=== PATIENT | male | born 1985 | race Caucasian/White ===

== ENCOUNTER 2016-04-30 08:45 | Emergency (ER) | payer BC ==
[2016-04-30 08:56] VITALS: BP 125/78
[2016-04-30] MEDS ORDERED: Alum Hydrox/Mag Hydrox/Simeth 30 ML, Lidocaine 2% 15 ML PO STA ×2 (09:14)
--- NOTE | 2016-04-30 09:44 | EDM.PDOC ---
ED HPI GI/ABDOMINAL - General Chief Complaint: Chest Pain Stated Complaint: CHEST PAIN Time Seen by Provider: 04/30/16 09:02 Source of Information: Reports: Patient, RN notes reviewed History Limitations: Reports: No limitations - History of Present Illness INITIAL COMMENTS - FREE TEXT/NARRATIVE: The patient states that he developed epigastric abdominal pain this past Thursday night, 04/27/2016. It was initially dull in character, however, has become more burning in character. He states that he did not feel anything during the day, 04/28/2016, however, he did feel worse Thursday night. He states that he felt pain all day yesterday, 04/29/2016. He states that his symptoms are not worse with activity - they can occur even if he is sedentary. He states that he has been taking 2 TUMS, 2 to 3 times a day, which gives him temporary relief. He states that he had some dyspnea and nausea yesterday. No recent emesis, although he did have some diarrhea last night. He denies a recent history of palpitations. No recent constipation or urinary symptoms. The patient reports that he was prescribed prednisone for eczema this past , 04/24/2016 - he believes he is taking 10 mg a day, although states that he did not take it today. He states that he has taken prednisone in the past, without problems. - Related Data Allergies/ADRs: Allergies Allergy/AdvReac Type Severity Reaction Status Date / Time acetaminophen Allergy Hives Verified 04/30/16 08:51 Home Meds: Home Meds Escitalopram [Lexapro] 10 mg PO DAILY 02/21/16 [History] Prednisone. 04/30/16 [History] Past Medical History HEENT History: Reports: Impaired vision Other HEENT History: wears eyeglasses Musculoskeletal History: Reports: Fracture Psychiatric History: Reports: Depression Dermatologic History: Reports: Eczema - Infectious Disease History Infectious Disease History: Reports: Chicken pox - Past Surgical History HEENT Surgical History: Reports: Adenoidectomy, Myringotomy w tube(s) (bilateral ) Social & Family History - Family History Family Medical History: Noncontributory - Tobacco Use Smoking Status *Q: Light Tobacco Smoker Years of Tobacco use: 8 Packs/Tins Daily: 0.1 - Caffeine Use Caffeine Use: Reports: Soda - Alcohol Use Alcohol Use History: Yes Date/Time of Last Drink Comment: January 2016 Alcohol Use in Last Twelve Months: Yes - Recreational Drug Use Recreational Drug Use: No - Living Situation & Occupation Living situation: Reports: single, with significant other (Girlfriend) 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) ED ROS GENERAL - Review of Systems Review Of Systems: See Below Constitutional: Reports: no symptoms HEENT: Reports: No symptoms Respiratory: Reports: No Symptoms Cardiovascular: Reports: No symptoms Endocrine: Reports: no symptoms GI/Abdominal: Reports: No symptoms : Reports: no symptoms Musculoskeletal: Reports: no symptoms Skin: Reports: no symptoms Neurological: Reports: No Symptoms Psychiatric: Reports: No symptoms Hematologic/Lymphatic: Reports: no symptoms Immunologic: Reports: no symptoms ED EXAM, GI/ABD - Physical Exam Exam: See Below Exam Limited By: No limitations General Appearance: alert, WD/WN, no apparent distress Eyes: bilateral: normal appearance, EOMI Ears: normal external exam, hearing grossly normal Nose: normal inspection, no blood Throat/Mouth: Normal inspection, Normal lips, Normal voice, No airway compromise Head: atraumatic, normocephalic Neck: normal inspection, full range of motion Respiratory/Chest: no respiratory distress, lungs clear, normal breath sounds, no accessory muscle use, chest non-tender Cardiovascular: normal peripheral pulses, regular rate, rhythm, no edema, no gallop, no JVD, no murmur, no rub GI/Abdominal: normal bowel sounds, soft, non tender, no organomegaly, no distention, no abnormal bruit, no mass, other (Obese) Back Exam: normal inspection, full range of motion. No: CVA tenderness (L), CVA tenderness (R) Extremities: normal inspection, normal range of motion, non-tender, normal capillary refill, no pedal edema Neurological: alert, oriented, normal cognition, no motor/sensory deficits Psychiatric: normal affect Skin Exam: Warm, Dry, Intact, Normal color, No rash Lymphatic: no adenopathy EKG INTERPRETATION EKG Date: 04/30/16 Time: 09:22 Rhythm: other (Sinus bradycardia) Rate (beats/min): 51 [place]: normal P-wave: present QRS: normal ST-T: normal QT: normal Comparison: NA - no prior EKG Course - Vital Signs Last Recorded V/S: Last Vital Signs Temp 35.9 C 04/30/16 08:52 Pulse 57 L 03/15/17 08:52 Resp 12 04/30/16 08:52 BP 125/78 04/30/16 08:52 Pulse Ox 97 04/30/16 08:52 - Orders/Labs/Meds Orders: Active Orders 24 hr Category Date Time Status EKG Documentation Completion [RC] STAT Care 04/30/16 09:13 Active Labs: Laboratory Tests 04/30/16 04/30/16 04/30/16 Range/Units 09:23 09:23 09:23 WBC 9.67 H (4.23-9.07) K/mm3 RBC 4.36 L (4.63-6.08) M/mm3 Hgb 12.5 L (13.7-17.5) gm/L Hct 36.8 L (40.1-51.0) % MCV 84.4 (79.0-92.2) fl MCH 28.7 (25.7-32.2) pg MCHC 34.0 (32.2-35.5) g/dl RDW Std Deviation 38.5 (35.1-43.9) fL Plt Count 244 (163-337) K/mm3 MPV 11.5 (9.4-12.3) fl Neutrophils % (Manual) 54 (40-60) % Band Neutrophils % 0 (0-10) % Lymphocytes % (Manual) 43 H (20-40) % Atypical Lymphs % 0 % Monocytes % (Manual) 1 L (2-10) % Eosinophils % (Manual) 2 (0.8-7.0) % Basophils % (Manual) 0 L (0.2-1.2) Platelet Estimate Adequate RBC Morph Comment Normal PT 10.9 (8.0-13.0) SECONDS INR 1.00 APTT 24 (22-36) SECONDS D-Dimer, Quantitative 0.34 (0.19-0.59) mg/L Sodium 141 (136-145) mEq/L Potassium 3.4 L (3.5-5.1) mEq/L Chloride 104 (98-107) mEq/L Carbon Dioxide 31 (21-32) mEq/L Anion Gap 9.4 (5-15) BUN 18 (7-18) mg/dL Creatinine 0.8 (0.7-1.3) mg/dL Est Cr Clr Drug Dosing 133.00 mL/min Estimated GFR (MDRD) > 60 (>60) mL/min BUN/Creatinine Ratio 22.5 H (14-18) Glucose 97 (74-106) mg/dL Calcium 9.0 (8.5-10.1) mg/dL Total Bilirubin 0.2 (0.2-1.0) mg/dL AST 15 (15-37) U/L ALT 23 (16-63) U/L Alkaline Phosphatase 69 (46-116) U/L Troponin I < 0.017 (0.00-0.056) ng/mL B-Natriuretic Peptide (0-100) pg/mL Total Protein 6.6 (6.4-8.2) g/dl Albumin 3.5 (3.4-5.0) g/dl Globulin 3.1 gm/dL Albumin/Globulin Ratio 1.1 (1-2) 04/30/16 Range/Units 09:23 WBC (4.23-9.07) K/mm3 RBC (4.63-6.08) M/mm3 Hgb (13.7-17.5) gm/L Hct (40.1-51.0) % MCV (79.0-92.2) fl MCH (25.7-32.2) pg MCHC (32.2-35.5) g/dl RDW Std Deviation (35.1-43.9) fL Plt Count (163-337) K/mm3 MPV (9.4-12.3) fl Neutrophils % (Manual) (40-60) % Band Neutrophils % (0-10) % Lymphocytes % (Manual) (20-40) % Atypical Lymphs % % Monocytes % (Manual) (2-10) % Eosinophils % (Manual) (0.8-7.0) % Basophils % (Manual) (0.2-1.2) Platelet Estimate RBC Morph Comment PT (8.0-13.0) SECONDS INR APTT (22-36) SECONDS D-Dimer, Quantitative (0.19-0.59) mg/L Sodium (136-145) mEq/L Potassium (3.5-5.1) mEq/L Chloride (98-107) mEq/L Carbon Dioxide (21-32) mEq/L Anion Gap (5-15) BUN (7-18) mg/dL Creatinine (0.7-1.3) mg/dL Est Cr Clr Drug Dosing mL/min Estimated GFR (MDRD) (>60) mL/min BUN/Creatinine Ratio (14-18) Glucose (74-106) mg/dL Calcium (8.5-10.1) mg/dL Total Bilirubin (0.2-1.0) mg/dL AST (15-37) U/L ALT (16-63) U/L Alkaline Phosphatase (46-116) U/L Troponin I (0.00-0.056) ng/mL B-Natriuretic Peptide 65 (0-100) pg/mL Total Protein (6.4-8.2) g/dl Albumin (3.4-5.0) g/dl Globulin gm/dL Albumin/Globulin Ratio (1-2) Meds: Medications Discontinued Medications Generic Name Dose Route Start Last Admin Trade Name Freq PRN Reason Stop Dose Admin Al Hydroxide/Mg Hydroxide 30 0 ml 04/30/16 09:14 04/30/16 09:21 ml/ Lidocaine HCl 15 ml PO 04/30/16 09:15 45 ml ONETIME STA Administration Famotidine 40 mg 04/30/16 11:18 04/30/16 11:26 Pepcid PO 04/30/16 11:19 40 mg ONETIME ONE Administration - Radiology Interpretation Free Text/Narrative:: Two-view chest radiograph appears to be grossly normal. Cardiac silhouette is within normal limits. No pulmonary vascular congestion. No pleural effusions. No focal infiltrate. No pneumothorax. Formal read per the Radiologist pending. - Re-Assessments/Exams Free Text/Narrative Re-Assessment/Exam: 04/30/16 09:44 The patient reports that the GI cocktail has improved his symptoms. He is currently hungry, requesting a cheeseburger. 04/30/16 11:16 Test results discussed with the patient. Today's workup is unremarkable, and indicates that the patient is suffering from gastritis, most likely as a consequence of the prednisone that he is taking for eczema. While it is up to the patient if he wants to continue taking the prednisone, I am recommending that we start the patient on [id number] famotidine twice a day, for the next few days. The patient is requesting a note for work for today and tomorrow. I find it difficult to justify a note for work for tomorrow, as gastritis should not prevent the patient from working, and if he is still uncomfortable, he will be uncomfortable at work or at home. Departure - Departure Time of Disposition: 11:19 Disposition: Home, Self-Care 01 Condition: good Clinical Impression: Gastritis Instructions: Gastritis, Adult, [id number], Nonspecific Chest Pain, Easy-to- Read Referrals: Megan Remy PA-C [Physician Rn Telephonic] - Forms: ED Department Discharge, Return to Work/School Form Additional Instructions: You were seen in the emergency room today for upper abdominal and lower chest pain. Workup in the ER included a blood work, an ECG, and a chest x-ray. Your workup was unremarkable. Your symptoms improved after drinking a GI cocktail, which indicates that your symptoms are due to either acid reflux or gastritis. Because you are on prednisone, your symptoms are MOST LIKELY due to gastritis. You have been started on the antacid medicine Pepcid. We recommend you take [id number] generic Pepcid (famotidine), one tablet twice a day for the next several days. If your symptoms persist, please followup with Megan Remy in the clinic. If any other problems, please do not hesitate to return to the ER. - My Orders Last 24 Hours: My Active Orders 04/30/16 09:13 EKG Documentation Completion [RC] STAT - Assessment/Plan Last 24 Hours: My Active Orders 04/30/16 09:13 EKG Documentation Completion [RC] STAT
--- NOTE | 2016-04-30 10:16 | CR ---
Chest: Two views of the chest were obtained. Comparison: No previous chest x-ray. Heart size and mediastinum are normal. Lungs are clear. Bony structures show several mild wedge deformities within the mid thoracic spine which are likely old. Impression: 1. Incidental spine findings. Nothing acute seen on two-view chest x-ray. Diagnostic code #2
[2016-04-30] MEDS ORDERED: Famotidine 20 MG Tab PO ONE (11:18)
== END 2016-04-30 11:36 | disposition home or self-care (01) ==
LOC: JD.ED 08:45
DX: K29.70 Gastritis, unspecified, without bleeding (principal); F32.9 Major depressive disorder, single episode, unspecified; F17.200 Nicotine dependence, unspecified, uncomplicated; Z88.8 Allergy status to other drugs, medicaments and biological substances; Z79.899 Other long term (current) drug therapy
CPT/HCPCS: 36415; 71020; 80053; 83880; 84484; 85025; 85379; 85610; 85730; 93005; 99285; A9270; 99283

== ENCOUNTER 2016-10-21 09:52 | Emergency (ER) | payer SELFPAY ==
[2016-10-21 10:05] VITALS: BP 134/85
--- NOTE | 2016-10-21 10:11 | EDM.PDOC ---
ED HPI GENERAL MEDICAL PROBLEM - General Chief Complaint: General Stated Complaint: FEVER, VOMITING AND SWEATING Time Seen by Provider: 10/21/16 10:11 Source of Information: Reports: Patient History Limitations: Reports: No Limitations - History of Present Illness INITIAL COMMENTS - FREE TEXT/NARRATIVE: 31-year-old male presents the ED with a 2-1/2 one half day history of nausea and repetitive vomiting. He reports he vomited about 7-8 times yesterday. [place] a little better this morning and thought he could make it to work but he vomited when he got there more dry heaves. At no time has there been any blood in emesis. Diarrhea. Tenderness epigastrium from so much vomiting. Feeling lightheaded and dizzy this morning. Onset: Sudden Onset Date: 10/19/16 Duration: Day(s): Location: Reports: Abdomen (Repetitive vomiting.) Quality: Reports: Ache, Other (Pressure in the stomach. Burning in his central chest from vomiting.) Severity: Moderate Improves with: Reports: None Worsens with: Reports: Other (Trying to drink) Context: Denies: Activity ( fluids.), Exercise, Lifting, Sick Contact, Trauma, Other Associated Symptoms: Reports: Loss of Appetite, Malaise, Nausea/Vomiting ( Intractable 8 yesterday.), Weakness, Other (Lightheaded and dizzy.) Treatments INSOLE AND HEEL STIFFENER: Reports: Other (see below) Other Treatments INSOLE AND HEEL STIFFENER: naproxen; cold and sinus medicine Generalized Pain Score (Numeric/FACES): 6 - Related Data Allergies Allergy/AdvReac Type Severity Reaction Status Date / Time acetaminophen Allergy Hives Verified 10/21/16 10:06 Home Meds: Home Meds Ciprofloxacin HCl [Cipro] 500 mg PO BID #12 tablet 10/21/16 [Rx] Meloxicam 15 mg PO DAILY #21 tablet 10/21/16 [Rx] Ondansetron [Zofran ODT] 4 mg PO Q6H #6 tab.dis 10/21/16 [Rx] Past Medical History HEENT History: Reports: Impaired Vision Other HEENT History: wears eyeglasses Respiratory History: Reports: Bronchitis, Recurrent Musculoskeletal History: Reports: Fracture Neurological History: Reports: Migraines Psychiatric History: Reports: Depression Dermatologic History: Reports: Eczema Other Dermatologic History: rashes - Infectious Disease History Infectious Disease History: Reports: Chicken Pox - Past Surgical History HEENT Surgical History: Reports: Adenoidectomy, Myringotomy w Tube(s) Social & Family History - Family History Family Medical History: Noncontributory - Tobacco Use Smoking Status *Q: Current Some Day Smoker Years of Tobacco use: 6 Packs/Tins Daily: 0.1 Used Tobacco, but Quit: No Second Hand Smoke Exposure: No - Caffeine Use Caffeine Use: Reports: Energy Drinks, Soda - Recreational Drug Use Recreational Drug Use: No - Living Situation & Occupation Living situation: Reports: Single, with Significant Other Occupation: Employed ED ROS GENERAL - Review of Systems Review Of Systems: See Below Constitutional: Reports: Fever, Chills, Malaise, Weakness, Fatigue, Diaphoresis , Decreased Appetite. Denies: Weight Loss HEENT: Reports: No Symptoms Respiratory: Reports: No Symptoms Cardiovascular: Reports: No Symptoms Endocrine: Reports: Fatigue GI/Abdominal: Reports: Abdominal Pain, Decreased Appetite, Nausea, Vomiting ( All day yesterday and again this morning.) : Reports: No Symptoms Musculoskeletal: Reports: No Symptoms (Urine is dark in color) Skin: Reports: No Symptoms Neurological: Reports: Dizziness Psychiatric: Reports: No Symptoms Hematologic/Lymphatic: Reports: No Symptoms ED EXAM, GENERAL - Physical Exam Exam: See Below Exam Limited By: No Limitations General Appearance: Alert, WD/WN, Mild Distress Eye Exam: Bilateral Eye: Normal Inspection Throat/Mouth: Normal Inspection, Normal Oropharynx, Other Head: Atraumatic, Normocephalic (Tongue is dry and coated) Neck: Normal Inspection, Supple, Non-Tender, Full Range of Motion. No: Lymphadenopathy (L), Lymphadenopathy (R) Respiratory/Chest: No Respiratory Distress, Lungs Clear, Normal Breath Sounds, No Accessory Muscle Use Cardiovascular: Normal Peripheral Pulses, Regular Rate, Rhythm, No Edema, No Gallop, No Murmur Peripheral Pulses: 2+: Posterior Tibial (L), Posterior Tibial (R), Dorsalis Pedis (L), Dorsalis Pedis (R) GI/Abdominal: Normal Bowel Sounds, Soft, No Organomegaly (Mildly tender in the epigastrium), No Distention, Tender Extremities: Normal Inspection, Normal Range of Motion, Non-Tender, No Pedal Edema, Normal Capillary Refill Neurological: Alert, Oriented, CN II-XII Intact, Normal Cognition, Normal Gait Psychiatric: Normal Affect, Normal Mood Skin Exam: Warm, Dry, Intact, Other (Mildly pallid.) Course - Vital Signs Last Recorded V/S: Last Vital Signs Temp 36.3 C 10/21/16 10:01 Pulse 77 10/21/16 10:01 Resp 18 10/21/16 10:01 BP 134/85 10/21/16 10:01 Pulse Ox 98 10/21/16 10:01 Orthostatic Blood Pressure [ 122/84 Standing] Orthostatic Blood Pressure [ 127/87 Sitting] Orthostatic Blood Pressure [ 128/77 Supine] - Orders/Labs/Meds Labs: Laboratory Tests 10/21/16 10/21/16 Range/Units 11:18 11:18 WBC 15.61 H (4.23-9.07) K/mm3 RBC 4.49 L (4.63-6.08) M/mm3 Hgb 12.8 L (13.7-17.5) gm/L Hct 37.0 L (40.1-51.0) % MCV 82.4 (79.0-92.2) fl MCH 28.5 (25.7-32.2) pg MCHC 34.6 (32.2-35.5) g/dl RDW Std Deviation 36.4 (35.1-43.9) fL Plt Count 237 (163-337) K/mm3 MPV 11.1 (9.4-12.3) fl Neutrophils % (Manual) 63 H (40-60) % Band Neutrophils % 17 H (0-10) % Lymphocytes % (Manual) 14 L (20-40) % Atypical Lymphs % 0 % Monocytes % (Manual) 6 (2-10) % Eosinophils % (Manual) 0 L (0.8-7.0) % Basophils % (Manual) 0 L (0.2-1.2) Platelet Estimate Adequate RBC Morph Comment Normal Sodium 136 (136-145) mEq/L Potassium 3.9 (3.5-5.1) mEq/L Chloride 100 (98-107) mEq/L Carbon Dioxide 31 (21-32) mEq/L Anion Gap 8.9 (5-15) BUN 12 (7-18) mg/dL Creatinine 1.0 (0.7-1.3) mg/dL Est Cr Clr Drug Dosing 98.36 mL/min Estimated GFR (MDRD) > 60 (>60) mL/min BUN/Creatinine Ratio 12.0 L (14-18) Glucose 111 H (74-106) mg/dL Calcium 9.8 (8.5-10.1) mg/dL Total Bilirubin 0.7 (0.2-1.0) mg/dL AST 26 (15-37) U/L ALT 24 (16-63) U/L Alkaline Phosphatase 74 (46-116) U/L C-Reactive Protein 20.3 H* (<1.0) mg/dL Total Protein 7.7 (6.4-8.2) g/dl Albumin 3.7 (3.4-5.0) g/dl Globulin 4.0 gm/dL Albumin/Globulin Ratio 0.9 L (1-2) Amylase 30 (25-115) U/L Meds: Medications Discontinued Medications Generic Name Dose Route Start Last Admin Trade Name Freq PRN Reason Stop Dose Admin Al Hydroxide/Mg Hydroxide 30 0 ml 10/21/16 10:23 10/21/16 11:00 ml/ Lidocaine HCl 15 ml PO 10/21/16 10:24 45 ml ONETIME ONE Administration Dextrose/Sodium Chloride 1,000 mls @ 999 mls/hr 10/21/16 10:30 Dextrose 5%-Normal Saline IV ASDIRECTED ROB Metoclopramide HCl 7.5 mg 10/21/16 10:22 10/21/16 11:06 Reglan IVPUSH 10/21/16 10:23 Not Given ONETIME ONE Ondansetron HCl 4 mg 10/21/16 10:55 10/21/16 11:05 Zofran Odt PO 10/21/16 10:56 4 mg ONETIME ONE Administration - Radiology Interpretation Free Text/Narrative:: 31-year-old male presents the ED with sudden onset of nausea vomiting yesterday upon awakening. He vomited about 7 times yesterday. Was unable to eat or drink at all yesterday. No diarrhea. Some burning discomfort in the central chest presumed to be esophagitis from vomiting. He has a history of GERD. He tried to go to work this morning but felt too dizzy lightheaded and weak and was having dry heaving again. He therefore elected to come to the ED. On examination he does appear volume depleted. Plan IV D5 normal saline at open. Reglan 7.5 mg IV. Routine labs including an amylase. GI cocktail 15 minutes after the Reglan is been given. - Re-Assessments/Exams Free Text/Narrative Re-Assessment/Exam: 10/21/16 11:02 apparently nurses were unable to establish an IV and hurt the patient a great deal and he refuses to have be poked again. He did tolerate the GI cocktail however. I will given Zofran sublingually and then let him step on Gatorade Powerade to make sure that he can't tolerate oral fluids to provide rehydration. Nurses feel he may be able to obtain some labs via a butterfly needle. is willing to tolerate this. Departure - Departure Time of Disposition: 12:23 Disposition: Home, Self-Care 01 Condition: Fair Clinical Impression: Acute gastroenteritis, Nausea and vomiting in adult - Discharge Information Prescriptions: Ciprofloxacin HCl [Cipro] 500 mg PO BID #12 tablet Meloxicam 15 mg PO DAILY #21 tablet Ondansetron [Zofran ODT] 4 mg PO Q6H #6 tab.dis Instructions: Nausea, Adult, Nausea and Vomiting, Adult Referrals: Fiorella Gabriel CURB SETTER [Primary Care Provider] - Forms: ED Department Discharge, ED Return to Work/School Form Additional Instructions: Evaluation in the emergency room today in regards to sudden onset of severe nausea and vomiting with associated fever and chills. Continue dry heaving this morning. Nurses were unable to establish an IV and therefore you did not get IV fluids which I think would make you feel better. Lab work reveals an elevated white blood cell count and markers for inflammation suggesting an underlying bacterial infections this suggests that current infection is likely foodborne illness. Likely part of the bacteria in under cooked food such as undercooked chicken etc. Suggest treatment with Zofran 4 mg under the tongue every 4-6 hours needed to reduce nausea or vomiting. Try and drink plenty of fluids such as Gatorade or Powerade such as 5-6 ounces sipped per hour to maintain hydration. Start antibiotic Cipro 500 mg twice daily for the next 6 days to clear up suspect foodborne infection. I did write a prescription for meloxicam 15 mg once daily that she can start taking when she stomach feeling improved it is to relieve inflammation and pain in your lower back. Suggest off work today and tomorrow until you can eat and drink normally again.
[2016-10-21] MEDS ORDERED: Metoclopramide 10 MG/2 ML SDV IVPUSH ONE (10:22)
[2016-10-21] MEDS ORDERED: Alum Hydrox/Mag Hydrox/Simeth 30 ML, Lidocaine 2% 15 ML PO ONE ×2 (10:23)
[2016-10-21] MEDS ORDERED: Dextrose 5%-0.9% NaCl 1,000 ML IV SCH (10:30)
[2016-10-21] MEDS ORDERED: Ondansetron 4 MG Tab.DIS PO ONE (10:55)
== END 2016-10-21 12:45 | disposition home or self-care (01) ==
LOC: JD.ED 09:52
DX: K52.9 Noninfective gastroenteritis and colitis, unspecified (principal); F32.9 Major depressive disorder, single episode, unspecified; F17.210 Nicotine dependence, cigarettes, uncomplicated; Z96.22 Myringotomy tube(s) status; Z98.890 Other specified postprocedural states; Z79.899 Other long term (current) drug therapy; Z88.6 Allergy status to analgesic agent
CPT/HCPCS: 36415; 80053; 82150; 85025; 86140; 99284; A9270; 99283

== ENCOUNTER 2016-11-27 05:23 | Emergency (ER) | payer SELFPAY ==
[2016-11-27 05:30] VITALS: BP 139/86
[2016-11-27] MEDS ORDERED: Doxycycline 100 MG Cap PO ONE ×2 (05:43→05:54)
[2016-11-27] MEDS ORDERED: Sulfamethoxazole/Trimethoprim 800-160 MG Tab PO ONE (05:44)
--- NOTE | 2016-11-27 05:45 | EDM.PDOC ---
ED HPI GENERAL MEDICAL PROBLEM - General Chief Complaint: Bite:Animal, Insect Stated Complaint: 2 SORE SPOTS ON RIGHT SIDE Time Seen by Provider: 11/27/16 05:43 Source of Information: Reports: Patient, RN Notes Reviewed - History of Present Illness INITIAL COMMENTS - FREE TEXT/NARRATIVE: 31-year-old male developed to inflamed areas one of the right lower chest wall and a second of the right lateral flank area that began about 4-5 days ago. Couple of days ago he squeezed some "pus or fluid from each of these. The upper area although still inflamed is improving. The lower area has become worse with increasing area of redness surrounding the initial lesion and increasing localized discomfort. He states he has never had anything of this nature before. He wonders if they might be "spider bites. He never felt or saw anything bite him but states when working on a car shortly before onset of the lesions there were some "small spiders in the area". Right Abdomen Pain Score (Numeric/FACES): 7 - Related Data Allergies Allergy/AdvReac Type Severity Reaction Status Date / Time acetaminophen Allergy Hives Verified 10/21/16 10:06 Home Meds: Home Meds Doxycycline [Vibramycin] 100 mg PO Q12HR #20 cap 11/27/16 [Rx] Past Medical History HEENT History: Reports: Impaired Vision Other HEENT History: wears eyeglasses Respiratory History: Reports: Bronchitis, Recurrent Musculoskeletal History: Reports: Fracture Neurological History: Reports: Migraines Psychiatric History: Reports: Depression Dermatologic History: Reports: Eczema Other Dermatologic History: rashes - Infectious Disease History Infectious Disease History: Reports: Chicken Pox - Past Surgical History HEENT Surgical History: Reports: Adenoidectomy, Myringotomy w Tube(s) Social & Family History - Family History Family Medical History: Noncontributory - Tobacco Use Smoking Status *Q: Never Smoker Years of Tobacco use: 6 Packs/Tins Daily: 0.1 Used Tobacco, but Quit: No Second Hand Smoke Exposure: No - Caffeine Use Caffeine Use: Reports: None - Recreational Drug Use Recreational Drug Use: No - Living Situation & Occupation Living situation: Reports: Single, with Significant Other Occupation: Employed ED ROS GENERAL - Review of Systems Review Of Systems: See Below Constitutional: Denies: Fever, Chills HEENT: Reports: No Symptoms Respiratory: Denies: Shortness of Breath Cardiovascular: Denies: Chest Pain GI/Abdominal: Denies: Abdominal Pain, Nausea, Vomiting Musculoskeletal: Denies: Joint Pain Skin: Reports: Erythema (Lesion right chest wall with localized swelling and erythema, lesion right flank with surrounding area of erythema) ED EXAM, ANIMAL BITE - Physical Exam Exam: See Below General Appearance: Alert, No Apparent Distress Throat/Mouth: Normal Inspection Head: No: Facial Swelling Neck: Supple, Full Range of Motion Respiratory/Chest: No Respiratory Distress Skin Exam: Warm/Dry, Other (There is a fairly small inflamed in right lateral chest wall with mild localized swelling, no fluctuance or drainage at this time , there is an infected area right flank with centrally raised lesion and relatively large area of surrounding erythema compatible with cellulitis, no central fluctuance or evidence of recent drainage, skin otherwise clear) Course - Vital Signs Last Recorded V/S: Last Vital Signs Temp 97.9 F 11/27/16 05:27 Pulse 94 11/27/16 05:27 Resp 16 11/27/16 05:27 BP 139/86 11/27/16 05:27 Pulse Ox 98 11/27/16 05:27 - Orders/Labs/Meds Meds: Medications Discontinued Medications Generic Name Dose Route Start Last Admin Trade Name Freq PRN Reason Stop Dose Admin Doxycycline Hyclate 200 mg 11/27/16 05:43 11/27/16 05:50 Vibramycin PO 11/27/16 05:44 200 mg ONETIME ONE Administration Doxycycline Hyclate 100 mg 11/27/16 05:54 11/27/16 06:03 Vibramycin PO 11/27/16 05:55 100 mg ONETIME ONE Administration Trimethoprim/Sulfamethoxazole 2 tab 11/27/16 05:44 11/27/16 05:50 Septra Ds PO 11/27/16 05:45 2 tab ONETIME ONE Administration Departure - Departure Time of Disposition: 05:50 Disposition: Home, Self-Care 01 Condition: Fair Clinical Impression: Cellulitis Qualifiers: Site of cellulitis: trunk Site of cellulitis of trunk: unspecified site Qualified Code(s): L03.319 - Cellulitis of trunk, unspecified - Discharge Information Prescriptions: Doxycycline [Vibramycin] 100 mg PO Q12HR #20 cap Instructions: Cellulitis, Adult Referrals: Fiorella Gabriel NP [Primary Care Provider] - Forms: ED Department Discharge, ED Return to Work/School Form Additional Instructions: You've been given doxycycline 200 mg orally and Bactrim DS 2 tablets orally while here in the ED to get started fighting this infection, continue doxycycline 100 mg twice daily for the next 10 days. Warm compresses 3-4 times daily as best you can. If a pus pocket does develop again you may open that with a razor blade for drainage, do not squeeze as that does drive the infection further and deeper into the tissue. Follow-up clinic if not much better within 3-4 days as expected, return to ED if symptoms worsening in any way. You may Alternate Tylenol and ibuprofen as needed for discomfort.
== END 2016-11-27 06:00 | disposition home or self-care (01) ==
LOC: JD.ED 05:23
DX: L03.313 Cellulitis of chest wall (principal); Z88.6 Allergy status to analgesic agent
CPT/HCPCS: 99282; A9270

== ENCOUNTER 2017-03-13 13:01 | Emergency (ER) | payer BC ==
[2017-03-13 13:12] VITALS: BP 123/73
--- NOTE | 2017-03-13 13:23 | EDM.PDOC ---
ED HPI GENERAL MEDICAL PROBLEM - General Chief Complaint: Respiratory Problem Stated Complaint: CHEST CONGESTION AND COUGH Time Seen by Provider: 03/13/17 13:21 Source of Information: Reports: Patient History Limitations: Reports: No Limitations - History of Present Illness INITIAL COMMENTS - FREE TEXT/NARRATIVE: 31-year-old male attends the ED with acute onset of upper respiratory tract infection last evening. After work he developed symptoms of generalized myalgia headache paroxysmal minimally productive cough is worse this morning. It's all over with severe headache. He needs to cough throughout the night without any sleep. Has absolutely no appetite today. Patient usually has a pain pill that he takes at bedtime for low back pain which she could not get down last night. Clinically has all the signs and symptoms of influenza. He did not receive a flu shot. Onset: Sudden Onset Date: 03/12/17 Onset Time: 16:00 Duration: Hour(s): Location: Reports: Chest (Paroxysmal minimally productive cough), Generalized ( Generalized myalgia with headache) Quality: Reports: Other Severity: Severe (Generalized myalgia. 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 Denies: Activity, Exercise, Lifting, Trauma, Other Associated Symptoms: Reports: Cough, cough w sputum, Fever/Chills (102.), Headaches, Loss of Appetite, Malaise, Nausea/Vomiting, Weakness (Generalized severe weakness.). Denies: Confusion, Diaphoresis (This can't get much up.), Rash, Seizure, Shortness of Breath, Syncope Treatments SECURITY GUARD: Reports: Other (see below) Other Treatments SECURITY GUARD: aleeve Headache Pain Score (Numeric/FACES): 10 - Related Data Allergies Allergy/AdvReac Type Severity Reaction Status Date / Time acetaminophen Allergy Hives Verified 10/21/16 10:06 Home Meds: Home Meds Ibuprofen [Motrin] 800 mg PO QID PRN #16 tab 03/13/17 [Rx] Oseltamivir [Tamiflu] 75 mg PO BID #10 cap 03/13/17 [Rx] Past Medical History HEENT History: Reports: Impaired Vision Other HEENT History: wears eyeglasses Respiratory History: Reports: Bronchitis, Recurrent Musculoskeletal History: Reports: Fracture Neurological History: Reports: Migraines Psychiatric History: Reports: Depression Dermatologic History: Reports: Eczema Other Dermatologic History: rashes - Infectious Disease History Infectious Disease History: Reports: Chicken Pox - Past Surgical History HEENT Surgical History: Reports: Adenoidectomy, Myringotomy w Tube(s) Social & Family History - Family History Family Medical History: Noncontributory - Tobacco Use Smoking Status *Q: Current Every Day Smoker Years of Tobacco use: 5 Packs/Tins Daily: 0.5 Used Tobacco, but Quit: No Second Hand Smoke Exposure: No - Caffeine Use Caffeine Use: Reports: Energy Drinks, Soda - Recreational Drug Use Recreational Drug Use: No - Living Situation & Occupation Living situation: Reports: Single, with Significant Other 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 Denies: Weight Loss HEENT: Reports: Sinus Problem (Feels a little clogged up in his), Throat Pain ( nose.). Denies: Ear Pain (marked throat pain. ), Glasses, Hearing Loss, Vertigo Respiratory: Reports: Shortness of Breath (Due to coughing.), Cough. Denies: Wheezing, Pleuritic Chest Pain, Sputum, Hemoptysis (Paroxysmal minimally productive cough.), Other Cardiovascular: Reports: Chest Pain. Denies: Blood Pressure Problem (Only from coughing.), Claudication, Dyspnea on Exertion, Edema, Lightheadedness, Orthopnea , Palpitations Endocrine: Reports: Fatigue GI/Abdominal: Reports: Anorexia. Denies: Abdominal Pain : Reports: No Symptoms Musculoskeletal: Reports: Muscle Pain (Generalized myalgia.) Skin: Reports: No Symptoms Neurological: Reports: Headache (Due to weakness.), Difficulty Walking Psychiatric: Reports: No Symptoms ( Constant throbbing headache bilaterally.) Hematologic/Lymphatic: Reports: No Symptoms Immunologic: Reports: No Symptoms ED EXAM, GENERAL - Physical Exam Exam: See Below Exam Limited By: No Limitations General Appearance: Alert, WD/WN, Moderate Distress (Appears ill. He is very warm to palpation. Nurses report To 37.7 but he feels warmer than that.) Eye Exam: Bilateral Eye: Normal Inspection (Has pain on lateral gaze bilaterally.) Ears: Normal TMs Throat/Mouth: Other (There are oropharynx is diffusely erythematous without any exudate.) Head: Atraumatic, Normocephalic Neck: Normal Inspection, Supple, Non-Tender, Full Range of Motion. No: Carotid Bruit, Lymphadenopathy (L), Lymphadenopathy (R) Respiratory/Chest: Lungs Clear (Mild tachypnea at rest secondary to fever), Normal Breath Sounds, No Accessory Muscle Use, Chest Non-Tender, Respiratory Distress Cardiovascular: Normal Peripheral Pulses, Regular Rate, Rhythm, No Edema, No Gallop, No Murmur, No Rub, Tachycardia (Mild tachycardia at rest 108/min.) GI/Abdominal: Normal Bowel Sounds, Soft, Non-Tender, No Organomegaly Back Exam: Normal Inspection. No: CVA Tenderness (L), CVA Tenderness (R) Extremities: Normal Inspection, Normal Range of Motion, Non-Tender, No Pedal Edema Neurological: Alert, Oriented, CN II-XII Intact, Normal Cognition Psychiatric: Normal Affect, Normal Mood Skin Exam: Warm, Dry, Intact, Normal Color, No Rash Course - Vital Signs Last Recorded V/S: Last Vital Signs Temp 37.7 C 03/13/17 14:29 Pulse 106 H 03/13/17 13:10 Resp 20 03/13/17 13:10 BP 123/73 03/13/17 13:10 Pulse Ox 95 03/13/17 13:10 - Orders/Labs/Meds Orders: Active Orders 24 hr Category Date Time Status CULTURE STREP A CONFIRMATION [RM] Stat Lab 03/13/17 13:22 Results STREP SCRN A RAPID W CULT CONF [RM] Stat Lab 03/13/17 13:22 Results Meds: Medications Discontinued Medications Generic Name Dose Route Start Last Admin Trade Name Freq PRN Reason Stop Dose Admin Ibuprofen 800 mg 03/13/17 13:37 03/13/17 14:29 Motrin PO 03/13/17 13:38 800 mg ONETIME ONE Administration - Radiology Interpretation Free Text/Narrative:: 31-year-old male presents the ED with acute onset of upper respiratory tract symptoms. He slightly atypical in terms that he does have nasal congestion and a moderately severe sore throat associated with diffuse myalgia high fever headache and paroxysmal cough all of which came on about same time his symptoms are compatible with influenza virus. His oropharynx however is quite erythematous. No exudate noted. Therefore he will have an influenza screen as well as a throat for rapid strep. We'll give him 800 mg of Motrin by mouth for fever and body ache relief. - Re-Assessments/Exams Free Text/Narrative Re-Assessment/Exam: 03/13/17 14:19 patient's influenza screen is positive for the type a virus. Strep screen was negative. Patient will therefore be started on Tamiflu 75 mg twice a day for the next 5 days. Advised of course to stay home from work for the next 3 days at least. Plenty of fluids such as Gatorade or Powerade. Motrin 600 mg every 6 hours for headache, bodyache, and fever relief. Departure - Departure Time of Disposition: 14:37 Disposition: Home, Self-Care 01 Condition: Fair Clinical Impression: Influenza A - Discharge Information Prescriptions: Ibuprofen [Motrin] 800 mg PO QID PRN #16 tab PRN Reason: fever/headache Oseltamivir [Tamiflu] 75 mg PO BID #10 cap Instructions: Influenza, Adult, [id number] Referrals: Fiorella Gabriel CONVEYOR FEEDER [Primary Care Provider] - Forms: ED Department Discharge Additional Instructions: Evaluation the emergency room today in regards to acute onset of upper respiratory tract infection with associated high fever generalized body aches and marked headache. Associated paroxysmal minimally productive cough and sore throat. Rapid strep screen proved to be negative. However influenza A screen is positive as clinically suspected. Treatment is therefore high-dose ibuprofen or Motrin 800 mg every 6 hours to relieve headache bodyache and fever. He will need this for at least 2 days. Start Tamiflu 75 mg twice daily this afternoon and take the second tablet before bed tonight. After 3 tablets it starts to work fairly well answers to relieve body ache headache and appetite will improve. Try drink plenty of fluids such as Gatorade or Powerade even though he may not have any appetite with this illness. He eats whatever you can. Prescription also given for your girlfriend for Tamiflu 75 mg daily for the next 10 days to try and prevent the flu. If she starts to show symptoms of flow such as fever cough she is to take it twice daily like you. - My Orders Last 24 Hours: My Active Orders 03/13/17 13:22 CULTURE STREP A CONFIRMATION [RM] Stat STREP SCRN A RAPID W CULT CONF [RM] Stat - Assessment/Plan Last 24 Hours: My Active Orders 03/13/17 13:22 CULTURE STREP A CONFIRMATION [RM] Stat STREP SCRN A RAPID W CULT CONF [RM] Stat
[2017-03-13] MEDS ORDERED: Ibuprofen 800 MG Tab PO ONE (13:37)
== END 2017-03-13 14:40 | disposition home or self-care (01) ==
LOC: JD.ED 13:01
DX: J10.1 Influenza due to other identified influenza virus with other respiratory manifestations (principal); Z88.6 Allergy status to analgesic agent; F17.210 Nicotine dependence, cigarettes, uncomplicated
CPT/HCPCS: 87081; 87430; 87804; 99283; A9270

== ENCOUNTER 2017-05-27 04:55 | Emergency (ER) | payer BC ==
[2017-05-27 05:05] VITALS: BP 138/97
[2017-05-27] MEDS ORDERED: Ketorolac 30 MG/ML SDV IVPUSH ONE (05:20)
[2017-05-27] MEDS ORDERED: diphenhydrAMINE 50 MG/ML SDV IVPUSH ONE (05:20)
[2017-05-27] MEDS ORDERED: Prochlorperazine 10 MG/2 ML SDV IVPUSH ONE (05:20)
[2017-05-27] MEDS ORDERED: Sodium Chloride 0.9% 10 ML Syringe FLUSH PRN (05:20)
--- NOTE | 2017-05-27 05:25 | EDM.PDOC ---
ED HPI GENERAL MEDICAL PROBLEM - General Chief Complaint: Headache Stated Complaint: MIGRAINE AND NECK PAIN Time Seen by Provider: 05/27/17 05:16 Source of Information: Reports: Patient History Limitations: Reports: No Limitations - History of Present Illness INITIAL COMMENTS - FREE TEXT/NARRATIVE: The patient presents with a headache. This has been going on for the past 3 days. This morning he woke up with the pain. He has a history of migraines but it has been awhile since he had any. He also has some neck pain. He has no fever but he does have chills. He has nausea and he is diaphoretic. The pain comes and goes. He has no cough, chest pain, abdominal pain or vomiting. He feels weak all over. He has no numbness. Onset: Gradual Duration: Day(s): (3) Location: Reports: Head, Neck Quality: Reports: Sharp Severity: Severe Improves with: Reports: None Worsens with: Reports: None Associated Symptoms: Reports: Fever/Chills, Headaches, Nausea/Vomiting. Denies : Chest Pain, Shortness of Breath Headache Pain Score (Numeric/FACES): 10 - Related Data Allergies Allergy/AdvReac Type Severity Reaction Status Date / Time acetaminophen Allergy Hives Verified 10/21/16 10:06 Home Meds: Home Meds Ibuprofen [Motrin] 800 mg PO QID PRN #16 tab 03/13/17 [Rx] Past Medical History HEENT History: Reports: Impaired Vision Other HEENT History: wears eyeglasses Respiratory History: Reports: Bronchitis, Recurrent Musculoskeletal History: Reports: Fracture Neurological History: Reports: Migraines Psychiatric History: Reports: Depression Dermatologic History: Reports: Eczema Other Dermatologic History: rashes - Infectious Disease History Infectious Disease History: Reports: Chicken Pox - Past Surgical History HEENT Surgical History: Reports: Adenoidectomy, Myringotomy w Tube(s) Social & Family History - Family History Family Medical History: Noncontributory - Tobacco Use Smoking Status *Q: Never Smoker Years of Tobacco use: 5 Packs/Tins Daily: 0.5 Used Tobacco, but Quit: No Second Hand Smoke Exposure: No - Caffeine Use Caffeine Use: Reports: Energy Drinks, Soda, Tea - Recreational Drug Use Recreational Drug Use: No - Living Situation & Occupation Living situation: Reports: Single, with Significant Other 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 Denies: Fever HEENT: Reports: No Symptoms Respiratory: Reports: No Symptoms Cardiovascular: Reports: No Symptoms Endocrine: Reports: No Symptoms GI/Abdominal: Reports: Nausea. Denies: Abdominal Pain, Diarrhea, Vomiting : Reports: No Symptoms Musculoskeletal: Reports: Neck Pain - Physical Exam Exam: See Below Exam Limited By: No Limitations General Appearance: Alert, No Apparent Distress Ears: Normal External Exam Nose: Normal Inspection Head Exam: Atraumatic, Normocephalic Neck: Normal Inspection, Supple, Non-Tender Respiratory/Chest: No Respiratory Distress, Lungs Clear, Normal Breath Sounds Cardiovascular: Regular Rate, Rhythm, No Edema, No Murmur GI/Abdominal: Soft, Non-Tender, No Organomegaly, No Mass Neuro Exam (Abbreviated): Alert, Oriented, No Motor/Sensory Deficits Course - Vital Signs Last Recorded V/S: Last Vital Signs Temp 96.3 F 05/27/17 05:01 Pulse 64 05/27/17 05:01 Resp 18 05/27/17 05:01 BP 138/97 H 05/27/17 05:01 Pulse Ox 94 L 05/27/17 05:01 - Orders/Labs/Meds Orders: Active Orders 24 hr Category Date Time Status Peripheral IV Care [RC] . DIRECTED Care 05/27/17 05:20 Active Sodium Chloride 0.9% [Saline Flush] Med 05/27/17 05:20 Active 10 ml FLUSH ASDIRECTED PRN Peripheral IV Insertion Adult [OM.PC] Routine Oth 05/27/17 05:20 Ordered Medication Orders Sodium Chloride (Saline Flush) 10 ml FLUSH ASDIRECTED PRN PRN Reason: Keep Vein Open Last Admin: 05/27/17 05:26 Dose: 10 ml Meds: Medications Generic Name Dose Route Start Last Admin Trade Name Freq PRN Reason Stop Dose Admin Sodium Chloride 10 ml 05/27/17 05:20 05/27/17 05:26 Saline Flush FLUSH 10 ml ASDIRECTED PRN Administration Keep Vein Open Discontinued Medications Generic Name Dose Route Start Last Admin Trade Name Freq PRN Reason Stop Dose Admin Diphenhydramine HCl 50 mg 05/27/17 05:20 05/27/17 05:25 Benadryl IVPUSH 05/27/17 05:21 50 mg ONETIME ONE Administration Ketorolac Tromethamine 30 mg 05/27/17 05:20 05/27/17 05:26 Toradol IVPUSH 05/27/17 05:21 30 mg ONETIME ONE Administration Prochlorperazine Edisylate 10 mg 05/27/17 05:20 05/27/17 05:26 Compazine IVPUSH 05/27/17 05:21 10 mg ONETIME ONE Administration - Re-Assessments/Exams Free Text/Narrative Re-Assessment/Exam: 05/27/17 05:24 I ordered an IV saline lock, compazine 10mg IV, toradol 30mg IV and benadryl 50mg IV. 05/27/17 06:09 He feels much better and he was able to sleep some. I will discharge him home. Departure - Departure Time of Disposition: 06:10 Disposition: Home, Self-Care 01 Condition: Good Clinical Impression: Migraine - Discharge Information Referrals: Gunner Gabriel MD [Primary Care Provider] - Forms: ED Department Discharge, ED Return to Work/School Form Additional Instructions: Go home and rest in a quit dark place. Drink plenty of fluids. Do not work today. Please return if you are worse. - My Orders Last 24 Hours: My Active Orders 05/27/17 05:20 Peripheral IV Care [RC] . DIRECTED Sodium Chloride 0.9% [Saline Flush] 10 ml FLUSH ASDIRECTED PRN Peripheral IV Insertion Adult [OM.PC] Routine - Assessment/Plan Last 24 Hours: My Active Orders 05/27/17 05:20 Peripheral IV Care [RC] . DIRECTED Sodium Chloride 0.9% [Saline Flush] 10 ml FLUSH ASDIRECTED PRN Peripheral IV Insertion Adult [OM.PC] Routine
== END 2017-05-27 06:23 | disposition home or self-care (01) ==
LOC: JD.ED 04:55
DX: G43.909 Migraine, unspecified, not intractable, without status migrainosus (principal); M54.2 Cervicalgia; Z88.6 Allergy status to analgesic agent
CPT/HCPCS: 96374; 96375; 99284; J0780; J1200; J1885; J7050; 99283

== ENCOUNTER 2017-06-13 17:42 | Emergency (ER) | payer BC ==
[2017-06-13 17:57] VITALS: BP 120/69
[2017-06-13] MEDS ORDERED: Ketorolac 60 MG/2 ML SDV IM ONE (18:35)
[2017-06-13] MEDS ORDERED: methylPREDNISolone Sodium Succinate 125 MG/2 ML SDV IM ONE (18:35)
[2017-06-13] MEDS ORDERED: hydrOXYzine HCl 25 MG/ML SDV IM ONE (18:41)
--- NOTE | 2017-06-13 18:51 | EDM.PDOC ---
ED HPI GENERAL MEDICAL PROBLEM - General Chief Complaint: Lower Extremity Injury/Pain Stated Complaint: FOOT PAIN Time Seen by Provider: 06/13/17 18:20 Source of Information: Reports: Patient History Limitations: Reports: No Limitations - History of Present Illness INITIAL COMMENTS - FREE TEXT/NARRATIVE: 31-year-old male presents for evaluation and treatment of pain to the bilateral feet due to a rash. Patient reports he's had a flareup of his eczema to his feet for the last 8 days. He has been struggling this since he was about 17. Patient reports that the rash did blister and he would pop the blisters. He is here requesting prednisone and oxycodone. He states he has been on oral prednisone for this in the past and has well for him. Is currently using betamethasone with little to no relief. He sees dermatology [place] but is not full to get an and sees solar site assessment specialist for about 3 months. No fevers, chills, nausea or vomiting. Patient reports that he is on oxyco back pain. Currently does not have any oxycodone. No primary care provider. Location: Reports: Lower Extremity, Left, Lower Extremity, Right Bilateral Feet Pain Score (Numeric/FACES): 9 - Related Data Allergies Allergy/AdvReac Type Severity Reaction Status Date / Time acetaminophen Allergy Hives Verified 10/21/16 10:06 Home Meds: Home Meds Ibuprofen [Motrin] 800 mg PO QID PRN #16 tab 03/13/17 [Rx] Betamethasone/Propylene Glyc [Betamethasone DP Aug 0.05%] 1 applic TOP ASDIRECTED 06/13/17 [History] Prednisone [IJD: predniSONE] 40 mg PO WITHBREAKFAST #11 tab 06/13/17 [Rx] hydrOXYzine HCl [Atarax] 25 mg PO Q6H PRN #20 tab 06/13/17 [Rx] Past Medical History HEENT History: Reports: Impaired Vision Other HEENT History: wears eyeglasses Respiratory History: Reports: Bronchitis, Recurrent Musculoskeletal History: Reports: Fracture Neurological History: Reports: Migraines Psychiatric History: Reports: Depression Dermatologic History: Reports: Eczema Other Dermatologic History: rashes - Infectious Disease History Infectious Disease History: Reports: Chicken Pox - Past Surgical History HEENT Surgical History: Reports: Adenoidectomy, Myringotomy w Tube(s) Social & Family History - Family History Family Medical History: Noncontributory - Tobacco Use Smoking Status *Q: Current Every Day Smoker Years of Tobacco use: 6 Packs/Tins Daily: 0.3 Used Tobacco, but Quit: No Second Hand Smoke Exposure: No - Caffeine Use Caffeine Use: Reports: Energy Drinks, Soda - Recreational Drug Use Recreational Drug Use: No - Living Situation & Occupation Living situation: Reports: Single, with Significant Other 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) Review of Systems - Review of Systems Review Of Systems: See Below Constitutional: Denies: Chills, Fever GI/Abdominal: Denies: Nausea, Vomiting Musculoskeletal: Reports: Foot Pain (bilateral) Skin: Reports: Rash (bilateral feet) ED EXAM, GENERAL - Physical Exam Exam: See Below Exam Limited By: No Limitations General Appearance: Alert, WD/WN, No Apparent Distress Respiratory/Chest: No Respiratory Distress Cardiovascular: Normal Peripheral Pulses, Regular Rate, Rhythm Peripheral Pulses: 3+: Posterior Tibial (L), Posterior Tibial (R), Dorsalis Pedis (L), Dorsalis Pedis (R) Neurological: Alert, Oriented, Normal Cognition Psychiatric: Normal Affect, Normal Mood Skin Exam: Warm, Dry, Other (Erythema and minor swelling to the bilateral feet worse on the medial aspects. Several plaques present on the feet. Spares the soles. Blanches under pressure. No blistering present. Negative Nikolsky sign.) Course - Vital Signs Last Recorded V/S: Last Vital Signs Temp 36.4 C 06/13/17 17:53 Pulse Resp 20 06/13/17 17:53 BP 120/69 06/13/17 17:53 Pulse Ox 96 06/13/17 17:53 - Orders/Labs/Meds Orders: Active Orders 24 hr Category Date Time Status Enema [RC] ASDIRECTED Care 06/13/17 18:08 Inactive Meds: Medications Discontinued Medications Generic Name Dose Route Start Last Admin Trade Name Albert PRN Reason Stop Dose Admin Hydroxyzine HCl 25 mg 06/13/17 18:41 06/13/17 18:50 Vistaril IM 06/13/17 18:42 25 mg ONETIME ONE Administration Ketorolac Tromethamine 60 mg 06/13/17 18:35 06/13/17 18:55 Toradol IM 06/13/17 18:36 60 mg ONETIME ONE Administration Methylprednisolone Sodium Succinate 125 mg 06/13/17 18:35 06/13/17 18:54 Solu-Medrol IM 06/13/17 18:36 125 mg ONETIME ONE Administration - Re-Assessments/Exams Free Text/Narrative Re-Assessment/Exam: 06/13/17 18:40 Patient was searched on the [place] prescription drug registry. He has received 16 prescriptions from 1 prescriber for controlled substances within the last year. Most recently he received oxycodone 15 mg #30 on 06-01-17. I will start the patient on some prednisone as I feel this will be most beneficial to him. I'll give him some Toradol and solumedrol here in the ER. Informed him I'm unable to refill oxycodone and he should see Fiorella Gabriel whom he has been seen for this in the past if he needs further pain management. Discharge instructions as documented. Departure - Departure Time of Disposition: 18:41 Disposition: Home, Self-Care 01 Condition: Fair Clinical Impression: Contact dermatitis and eczema - Discharge Information Prescriptions: hydrOXYzine HCl [Atarax] 25 mg PO Q6H PRN #20 tab PRN Reason: Itching Prednisone [IJD: predniSONE] 40 mg PO WITHBREAKFAST #11 tab Instructions: Contact Dermatitis Referrals: PCP,None [Primary Care Provider] - Fiorella Gabriel NP [Ordering Only Provider] - Forms: ED Department Discharge Additional Instructions: Take the prednisone as prescribed. 1 tab twice a day for 3 days then 1 tab once a day for 3 days then one half tab daily for 4 days. Start the prednisone tomorrow since you were given steroid in the ER tonight. Hydroxyzine 1 tab every 6 hours as needed for itchiness. Wkde-[id number] ibuprofen 600-800 mg every 6 hours as needed for pain. follow-up with your primary care provider for further pain management. Follow-up with dermatology as planned. If you continue to have a rash after the prednisone see dermatology within 2 weeks. If you're unable to see your normal provider in [place], consider seeing dermatology in [facility] is quicker to get in and be seen. Please return to the ER for symptoms change or worsen.
== END 2017-06-13 19:03 | disposition home or self-care (01) ==
LOC: JD.ED 17:42
DX: L25.9 Unspecified contact dermatitis, unspecified cause (principal); F17.210 Nicotine dependence, cigarettes, uncomplicated; Z88.6 Allergy status to analgesic agent
CPT/HCPCS: 96372; 99283; J1885; J2930; J3410

== ENCOUNTER 2017-06-22 05:30 | Emergency (ER) | payer BC ==
[2017-06-22 05:43] VITALS: BP 131/78
--- NOTE | 2017-06-22 06:15 | EDM.PDOC ---
ED HPI GENERAL MEDICAL PROBLEM - General Chief Complaint: Upper Extremity Injury/Pain Stated Complaint: LEFT ELBOW PAIN INJURED LAST WEEK Time Seen by Provider: 06/22/17 05:42 Source of Information: Reports: Patient History Limitations: Reports: No Limitations - History of Present Illness INITIAL COMMENTS - FREE TEXT/NARRATIVE: The patient states that he bumped his left elbow at work about 2-3 weeks ago. He was seen at occupational health about 3 days later, and prescribed Keflex for 7 days for presumed cellulitis of the elbow. He states that his elbow got better, and remained better until this past Thursday night, 06/19/2017, when the elbow again developed warmth, erythema, and swelling. No recent fever. The patient states that he did not re-injure his left elbow, although he acknowledges that he sometimes leans on his left elbow at work. No left elbow problems prior to 2-3 weeks ago. The patient's PCP is Fiorella Gabriel, with whom the patient has a pain contract. Left Elbow Pain Score (Numeric/FACES): 7 - Related Data Allergies Allergy/AdvReac Type Severity Reaction Status Date / Time acetaminophen Allergy Hives Verified 06/22/17 05:44 Home Meds: Home Meds Betamethasone/Propylene Glyc [Betamethasone DP Aug 0.05%] 1 applic TOP ASDIRECTED 06/13/17 [History] hydrOXYzine HCl [Atarax] 25 mg PO Q6H PRN #20 tab 06/13/17 [Rx] Past Medical History HEENT History: Reports: Impaired Vision Other HEENT History: wears eyeglasses Psychiatric History: Reports: Depression Dermatologic History: Reports: Eczema - Infectious Disease History Infectious Disease History: Reports: Chicken Pox - Past Surgical History HEENT Surgical History: Reports: Adenoidectomy, Myringotomy w Tube(s) (bilateral ) Social & Family History - Family History Family Medical History: Noncontributory - Tobacco Use Smoking Status *Q: Light Tobacco Smoker Tobacco Use Within Last Twelve Months: Smokeless Tobacco (chews 1 tin/day x 12 yrs old) Years of Tobacco use: 6 Packs/Tins Daily: 0.1 - Caffeine Use Caffeine Use: Reports: None - Alcohol Use Alcohol Use History: No - Recreational Drug Use Recreational Drug Use: No - Living Situation & Occupation Living situation: Reports: Single, with Family 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 ED EXAM, GENERAL - Physical Exam Exam: See Below Exam Limited By: No Limitations General Appearance: Alert, WD/WN, No Apparent Distress Extremities: Other (Mild erythema and mild swelling to the extensor surface of the left elbow, with associated warmth. Mild tenderness to palpation of this area, however, no tenderness to palpation of the elbow joint, and ROM of the elbow is painless.) Course - Vital Signs Last Recorded V/S: Last Vital Signs Temp 36.9 C 06/22/17 05:38 Pulse 92 06/22/17 05:38 Resp 18 06/22/17 05:38 BP 131/78 06/22/17 05:38 Pulse Ox 97 06/22/17 05:38 - Re-Assessments/Exams Free Text/Narrative Re-Assessment/Exam: 06/22/17 06:10 The patient appears to have relatively mild left olecranon bursitis, possibly due to leaning on his left elbow at work. I'm recommending [id number] NSAIDs, but I will refer him to Dr. Merchant, as well. I do not see an indication for antibiotics at this time. The patient is requesting a note for work. Departure - Departure Time of Disposition: 06:10 Disposition: Home, Self-Care 01 Condition: Good Clinical Impression: Olecranon bursitis of left elbow - Discharge Information Referrals: Fiorella Gabriel NP [Primary Care Provider] - Praveen Merchant MD [Physician] - Forms: ED Department Discharge, ED Return to Work/School Form Additional Instructions: You were seen in the emergency room for painful swelling of your left elbow. On examination, you appear to have olecranon bursitis = inflammation of the membrane that makes joint fluid. Take pnvf-[id number] ibuprofen, 2-3 tablets (400-600 mg) every 8 hours, with food, OR gpho-ztl-zlkhlin Aleve, one tablet every 12 hours, with food. Ice your left elbow several times a day. Avoid leaning on your left elbow is much as possible. Follow-up with the Orthopedic Surgeon Dr. Merchant at the next available appointment. If any other problems, please do not hesitate to return to the ER.
== END 2017-06-22 06:20 | disposition home or self-care (01) ==
LOC: JD.ED 05:30
DX: M70.22 Olecranon bursitis, left elbow (principal); F17.210 Nicotine dependence, cigarettes, uncomplicated; Z88.6 Allergy status to analgesic agent
CPT/HCPCS: 99283

== ENCOUNTER 2018-06-05 09:33 | Emergency (ER) | payer SELFPAY ==
[2018-06-05 09:44] VITALS: BP 117/100
--- NOTE | 2018-06-05 10:11 | EDM.PDOC ---
ED HPI GENERAL MEDICAL PROBLEM - General Chief Complaint: Skin Complaint Stated Complaint: SKIN CONDITION ACTING UP Time Seen by Provider: 06/05/18 09:55 Source of Information: Reports: Patient History Limitations: Reports: No Limitations - History of Present Illness INITIAL COMMENTS - FREE TEXT/NARRATIVE: The patient presents with a rash. He has bad eczema. He is under the care of a engineering geologist. He cannot get in to see her until mid June. This flare up started a few days ago. It is bad on his hands and feet. He also has some on his arms. He usually needs a steroid taper and that will help. He has no symptomatic problems such as fever, chills, cough, chest pain, or shortness of breath. Onset: Gradual Duration: Day(s): Location: Reports: Upper Extremity, Left, Upper Extremity, Right, Lower Extremity, Left, Lower Extremity, Right Quality: Reports: Sharp Severity: Moderate Improves with: Reports: None Worsens with: Reports: None Associated Symptoms: Reports: No Other Symptoms Bilateral Hand Pain Score (Numeric/FACES): 8 Bilateral Foot Pain Score (Numeric/FACES): 8 - Related Data Allergies Allergy/AdvReac Type Severity Reaction Status Date / Time acetaminophen Allergy Hives Verified 06/05/18 09:44 Home Meds: Home Meds Dextroamphetamine/Amphetamine [Adderall] 30 mg PO DAILY 06/05/18 [History] oxyCODONE HCl [oxyCODONE] 15 mg PO BEDTIME PRN 06/05/18 [History] Past Medical History HEENT History: Reports: Impaired Vision Other HEENT History: wears eyeglasses Respiratory History: Reports: Bronchitis, Recurrent Musculoskeletal History: Reports: Fracture Neurological History: Reports: Migraines Psychiatric History: Reports: Depression Dermatologic History: Reports: Eczema Other Dermatologic History: rashes - Infectious Disease History Infectious Disease History: Reports: Chicken Pox - Past Surgical History HEENT Surgical History: Reports: Adenoidectomy, Myringotomy w Tube(s) Social & Family History - Family History Family Medical History: Noncontributory - Tobacco Use Smoking Status *Q: Current Every Day Smoker Years of Tobacco use: 5 Packs/Tins Daily: 0.1 - Caffeine Use Caffeine Use: Reports: Soda - Recreational Drug Use Recreational Drug Use: No - Living Situation & Occupation Living situation: Reports: Single, with Family 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[employer]) ED ROS GENERAL - Review of Systems Review Of Systems: See Below Constitutional: Reports: No Symptoms HEENT: Reports: No Symptoms Respiratory: Reports: No Symptoms Cardiovascular: Reports: No Symptoms Endocrine: Reports: No Symptoms GI/Abdominal: Reports: No Symptoms : Reports: No Symptoms Musculoskeletal: Reports: Other (Hand and foot pain with a rash) Skin: Reports: Rash ED EXAM, SKIN/RASH Exam: See Below Exam Limited By: No Limitations General Appearance: Alert, No Apparent Distress Ears: Normal External Exam Nose: Normal Inspection Head: Atraumatic, Normocephalic Neck: Normal Inspection Respiratory/Chest: No Respiratory Distress, Lungs Clear, Normal Breath Sounds Cardiovascular: Regular Rate, Rhythm, No Edema, No Murmur GI/Abdominal: Soft, Non-Tender, No Organomegaly, No Mass Back Exam: Normal Inspection Extremities: Other (Eythema with flacky skin to his hands and arms) Course - Vital Signs Last Recorded V/S: Last Vital Signs Temp 97.6 F 06/05/18 09:38 Pulse 88 06/05/18 09:38 Resp 16 06/05/18 09:38 BP 117/100 H 06/05/18 09:38 Pulse Ox 99 06/05/18 09:38 Departure - Departure Time of Disposition: 10:10 Disposition: Home, Self-Care 01 Condition: Good Clinical Impression: Eczema Qualifiers: Eczema type: unspecified Qualified Code(s): L30.9 - Dermatitis, unspecified - Discharge Information *PRESCRIPTION DRUG MONITORING PROGRAM REVIEWED*: Not Applicable *COPY OF PRESCRIPTION DRUG MONITORING REPORT IN PATIENT KARLEY: Not Applicable Referrals: PCP,None [Primary Care Provider] - Additional Instructions: Take the prednisone as prescribed. Follow up with your Blueprint Developer as scheduled and please return if you are worse.
== END 2018-06-05 10:30 | disposition home or self-care (01) ==
LOC: JD.ED 09:33
DX: L30.9 Dermatitis, unspecified (principal); Z88.8 Allergy status to other drugs, medicaments and biological substances; F17.210 Nicotine dependence, cigarettes, uncomplicated
CPT/HCPCS: 99282; 99283

== ENCOUNTER 2018-07-24 11:53 | Emergency (ER) | payer SELFPAY ==
[2018-07-24 12:02] VITALS: BP 140/97
--- NOTE | 2018-07-24 12:38 | EDM.PDOC ---
ED HPI GENERAL MEDICAL PROBLEM - General Chief Complaint: Skin Complaint Stated Complaint: SKIN COMPLAINT Time Seen by Provider: 07/24/18 12:26 Source of Information: Reports: Patient, Old Records History Limitations: Reports: No Limitations - History of Present Illness INITIAL COMMENTS - FREE TEXT/NARRATIVE: 32-year-old male presents for refill of his prednisone. Patient states he has trouble with eczema. He has been seen a construction controller, Dr. Costa Meier, in [place]. Last visit was about a month and a half ago. He states he's currently trying to get on Duopixin but due to insurance concerns has not been able to get on as of yet. He states that he has been on prednisone and this works well. Currently his eczema is well controlled. He has been off prednisone for at least a few weeks but is concerned that the eczema may flare again if he is off the prednisone much longer. He states that his construction controller told him that he should be seen in the ER for refill of his prednisone if he needs it. Review patient's records show he was seen here in the ER on June [address] Tyler. At that time he was given prednisone instructed to take 4 tabs daily for 7 days then 3 tabs daily for 7 days then 2 tabs daily for 7 days then a tab daily; he was given 70 tabs of this. He is requesting a refill of this prescription. This medication should've lasted him 4 weeks. - Related Data Allergies Allergy/AdvReac Type Severity Reaction Status Date / Time acetaminophen Allergy Hives Verified 06/05/18 09:44 Home Meds: Home Meds Dextroamphetamine/Amphetamine [Adderall] 30 mg PO DAILY 06/05/18 [History] oxyCODONE HCl [oxyCODONE] 15 mg PO BEDTIME PRN 06/05/18 [History] predniSONE [Prednisone] 10 mg PO DAILY #70 tablet 07/24/18 [Rx] Past Medical History HEENT History: Reports: Impaired Vision Other HEENT History: wears eyeglasses Cardiovascular History: Reports: None Respiratory History: Reports: Bronchitis, Recurrent Gastrointestinal History: Reports: None Genitourinary History: Reports: None Musculoskeletal History: Reports: Fracture Neurological History: Reports: Migraines Psychiatric History: Reports: ADD, Depression Endocrine/Metabolic History: Reports: None Hematologic History: Reports: None Immunologic History: Reports: None Oncologic (Cancer) History: Reports: None Dermatologic History: Reports: Eczema Other Dermatologic History: rashes - Infectious Disease History Infectious Disease History: Reports: Chicken Pox - Past Surgical History Head Surgeries/Procedures: Reports: None HEENT Surgical History: Reports: Adenoidectomy, Myringotomy w Tube(s) Social & Family History - Family History Family Medical History: Noncontributory - Tobacco Use Smoking Status *Q: Never Smoker - Caffeine Use Caffeine Use: Reports: Soda - Recreational Drug Use Recreational Drug Use: No - Living Situation & Occupation Living situation: Reports: Single, with Family 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 ED EXAM, SKIN/RASH Exam: See Below Exam Limited By: No Limitations General Appearance: Alert, WD/WN, No Apparent Distress Respiratory/Chest: No Respiratory Distress Neurological: Alert, Oriented, Normal Cognition Psychiatric: Normal Affect, Normal Mood Skin: Warm, Dry, Normal Color, Rash (small patches of eczema to the bilateral hands) Course - Vital Signs Last Recorded V/S: Last Vital Signs Temp 96.9 F 07/24/18 12:00 Pulse 70 07/24/18 12:00 Resp 16 07/24/18 12:00 BP 140/97 H 07/24/18 12:00 Pulse Ox 99 07/24/18 12:00 Departure - Departure Time of Disposition: 12:39 Disposition: Home, Self-Care 01 Condition: Fair Clinical Impression: Eczema Qualifiers: Eczema type: unspecified Qualified Code(s): L30.9 - Dermatitis, unspecified - Discharge Information *PRESCRIPTION DRUG MONITORING PROGRAM REVIEWED*: No *COPY OF PRESCRIPTION DRUG MONITORING REPORT IN PATIENT KARLEY: No Prescriptions: predniSONE [Prednisone] 10 mg PO DAILY #70 tablet Instructions: Eczema Referrals: Fiorella Gabriel NP [Primary Care Provider] - Forms: ED Department Discharge Additional Instructions: Take the prednisone as prescribed. 4 tabs daily for 7 days and 3 tabs daily for 7 days then 2 tabs daily for 7 days and 1 tab daily. Follow-up with your construction controller for further management of your eczema Make sure you taper off prednisone. When you are on prednisone for long periods of time you can develop adrenal suppression, therefore it is always recommend that you taper off prednisone you have been on it for so long. Please return the if your symptoms change or worsen.
== END 2018-07-24 12:59 | disposition home or self-care (01) ==
LOC: JD.ED 11:53
DX: L30.9 Dermatitis, unspecified (principal); Z79.899 Other long term (current) drug therapy; Z88.8 Allergy status to other drugs, medicaments and biological substances
CPT/HCPCS: 99281; 99283

== ENCOUNTER 2020-08-22 09:53 | Emergency (ER) | payer SELFPAY ==
[2020-08-22] MEDS ORDERED: LORazepam 0.5 MG Tab PO ONE (10:31)
--- NOTE | 2020-08-22 10:56 | EDM.PDOC ---
ED HPI GENERAL MEDICAL PROBLEM - General Chief Complaint: Chest Pain Stated Complaint: IRRGULAR HEART BEAT Time Seen by Provider: 08/22/20 10:06 Source of Information: Reports: Patient History Limitations: Reports: No Limitations - History of Present Illness INITIAL COMMENTS - FREE TEXT/NARRATIVE: 34-year-old male presents the emergency department today with complaints of palpitations and clammy hands. Patient states that this started this morning. It is not worsened or relieved by anything. He denies any cardiac history. He denies taking any prescription medications. States his primary care provider is Whitney Kerr. Patient is a pack-a-day smoker for the past 6 years. States he consumes 1 Celsius energy drink daily however he has not taken this today. States he feels like this is more anxiety related as he has had some stressors in his life for the past week as he just found out his is cheating on him. Patient denies any recent fever or chills. He denies nausea, vomiting, diarrhea or abdominal pain. He denies shortness of breath or cough. He denies any chest pain or diaphoresis. He states he has not eaten in about 4 days due to the stress in his life. - Related Data Allergies Allergy/AdvReac Type Severity Reaction Status Date / Time acetaminophen Allergy Hives Verified 08/24/18 22:04 baby oil Allergy Hives Uncoded 08/24/18 22:04 Home Meds: Home Meds oxyCODONE HCl [oxyCODONE] 15 mg PO BEDTIME PRN 06/05/18 [History] Clindamycin HCl 300 mg PO Q8H #21 capsule 08/24/18 [Rx] Triamcinolone Acetonide [Triamcinolone Acetonide 0.1% Oint] 80 gm .XX BID #1 tube 08/29/18 [Rx] LORazepam [Ativan] 0.5 mg PO BID PRN #10 tablet 08/22/20 [Rx] Past Medical History HEENT History: Reports: Impaired Vision Other HEENT History: wears eyeglasses Cardiovascular History: Reports: None Respiratory History: Reports: Bronchitis, Recurrent Gastrointestinal History: Reports: None Genitourinary History: Reports: None Musculoskeletal History: Reports: Fracture Other Musculoskeletal History: left wrist Neurological History: Reports: Migraines Psychiatric History: Reports: ADD, Anxiety, Depression Endocrine/Metabolic History: Reports: None, Obesity/BMI 30+ Hematologic History: Reports: None Immunologic History: Reports: None Oncologic (Cancer) History: Reports: None Dermatologic History: Reports: Eczema Other Dermatologic History: rashes - Infectious Disease History Infectious Disease History: Reports: Chicken Pox, MRSA - Past Surgical History Head Surgeries/Procedures: Reports: None HEENT Surgical History: Reports: Adenoidectomy, Myringotomy w Tube(s) Social & Family History - Family History Family Medical History: No Pertinent Family History Endocrine/Metabolic: Reports: Diabetes, type II - Tobacco Use Years of Tobacco use: 6 Packs/Tins Daily: 0.5 - Caffeine Use Caffeine Use: Reports: Energy Drinks - Recreational Drug Use Recreational Drug Use: No - Living Situation & Occupation Living situation: Reports: Single, with Family 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 ED EXAM, GENERAL - Physical Exam Exam: See Below Exam Limited By: No Limitations General Appearance: Alert, WD/WN, Anxious Ears: Normal External Exam, Hearing Grossly Normal Nose: Normal Inspection Throat/Mouth: Normal Inspection, Normal Lips, Normal Voice, No Airway Compromise Head: Atraumatic Neck: Normal Inspection, Supple Respiratory/Chest: No Respiratory Distress, Lungs Clear, Normal Breath Sounds, No Accessory Muscle Use, Chest Non-Tender Cardiovascular: Normal Peripheral Pulses, Regular Rate, Rhythm, No Murmur GI/Abdominal: Normal Bowel Sounds, Soft, Non-Tender, No Distention (Male) Exam: Deferred Rectal (Males) Exam: Deferred Back Exam: Normal Inspection Extremities: Normal Inspection Neurological: Alert, Oriented, Normal Cognition Psychiatric: Anxious Skin Exam: Warm, Dry, Intact, Normal Color, No Rash Lymphatic: No Adenopathy #1 Interpretation EKG Date: 08/22/20 Time: 10:42 Rhythm: NSR Rate (Beats/Min): 82 [place]: Normal P-Wave: Present QRS: Normal ST-T: Normal QT: Normal Comparison: NA - No Prior EKG EKG Interpretation Comments: Per Dr. Cohen interpretation: Sinus rhythm at 82 bpm; tall R wave in lead I suggest LVHnormal for age Course - Vital Signs Text/Narrative:: 34-year-old male presents with palpitations. No significant past medical history. He is a pack-a-day smoker for past 6 years. Recently has had increased stressors in his life. Patient is not wanting excessive testing as he states he has does not have any medical insurance so he is concerned regarding that however I would like to rule out any cardiac issues. I have discussed this with him and he is agreeable. I have ordered an EKG, portable view of the chest, labs to include a CBC, CMP and a troponin level. I am also going to give the patient 1/2 mg of p.o. Ativan to decrease his anxiety. He states he generally does not like how anxiety medications make him feel however he is visibly anxious at this time. Last Recorded V/S: Last Vital Signs Temp 98.9 F 08/22/20 10:23 Pulse 85 08/22/20 11:14 Resp 18 08/22/20 11:14 BP 137/87 08/22/20 11:14 Pulse Ox 100 08/22/20 11:14 - Orders/Labs/Meds Orders: Active Orders 24 hr Category Date Time Status EKG Documentation Completion [RC] STAT Care 08/22/20 10:31 Active Labs: Laboratory Tests 08/22/20 08/22/20 Range/Units 11:07 11:07 WBC 11.81 H (4.23-9.07) K/mm3 RBC 5.38 (4.63-6.08) M/mm3 Hgb 15.3 D (13.7-17.5) gm/dl Hct 45.8 (40.1-51.0) % MCV 85.1 (79.0-92.2) fl MCH 28.4 (25.7-32.2) pg MCHC 33.4 (32.2-35.5) g/dl RDW Std Deviation 41.4 (35.1-43.9) fL Plt Count 302 (163-337) K/mm3 MPV 10.3 (9.4-12.3) fl Neut % (Auto) 78.5 H (34.0-67.9) % Lymph % (Auto) 13.9 L (21.8-53.1) % Baker % (Auto) 7.0 (5.3-12.2) % Eos % (Auto) 0.1 L (0.8-7.0) Baso % (Auto) 0.3 (0.1-1.2) % Neut # (Auto) 9.27 H (1.78-5.38) K/mm3 Lymph # (Auto) 1.64 (1.32-3.57) K/mm3 Baker # (Auto) 0.83 H (0.30-0.82) K/mm3 Eos # (Auto) 0.01 L (0.04-0.54) K/mm3 Baso # (Auto) 0.04 (0.01-0.08) K/mm3 Sodium 142 (136-145) mEq/L Potassium 3.3 L (3.5-5.1) mEq/L Chloride 103 (98-107) mEq/L Carbon Dioxide 27 (21-32) mEq/L Anion Gap 15.3 H (5-15) BUN 11 (7-18) mg/dL Creatinine 1.2 (0.7-1.3) mg/dL Est Cr Clr Drug Dosing TNP Estimated GFR (MDRD) > 60 (>60) mL/min BUN/Creatinine Ratio 9.2 L (14-18) Glucose 111 H (70-99) mg/dL Calcium 8.8 (8.5-10.1) mg/dL Magnesium 1.9 (1.8-2.4) mg/dL Total Bilirubin 0.5 (0.2-1.0) mg/dL AST 43 H (15-37) U/L ALT 55 (16-63) U/L Alkaline Phosphatase 75 (46-116) U/L Troponin I < 0.017 (0.00-0.056) ng/mL Total Protein 7.4 (6.4-8.2) g/dl Albumin 4.3 (3.4-5.0) g/dl Globulin 3.1 gm/dL Albumin/Globulin Ratio 1.4 (1-2) TSH 3rd Generation 0.924 (0.358-3.74) uIU/mL Meds: Medications Discontinued Medications Generic Name Dose Route Start Last Admin Trade Name Freq PRN Reason Stop Dose Admin Lorazepam 0.5 mg 08/22/20 10:31 08/22/20 10:40 Lorazepam 0.5 Mg Tab PO 08/22/20 10:32 0.5 mg ONETIME ONE Administration Potassium Chloride 40 meq 08/22/20 12:02 Potassium Chloride 20 Meq Tab.Er PO 08/22/20 12:03 ONETIME ONE - Re-Assessments/Exams Free Text/Narrative Re-Assessment/Exam: 08/22/20 12:07 Hematology reveals a WBC of 11.81, hemoglobin 15.3, hematocrit 45.8, platelet count 302 Chemistry reveals a sodium of 142, potassium 3.2, carbon dioxide 27, anion gap 15.3, BUN 11, creatinine 1.2, glucose 111, magnesium 1.9, AST 43, ALT 55, alk phos 75, troponin less than 0.017, TSH 0.924 Patient states he is feeling much better after receiving the half milligram of Ativan. I will discharge him to home. He is requesting for me to prescribe him some Ativan. I did have a lengthy discussion with him regarding the fact that it would be very beneficial for him to follow-up with his primary care provider and consider being started on some antianxiety medication as this will help him get through this stressful time. Until then I will send a prescription to his pharmacy for Ativan 1/2 mg p.o. twice daily as needed for anxiety. I also discussed with him the fact that this can make him slightly groggy and he should not be driving while taking this medication. He states he primarily would like it to have to use at bedtime as he states he has not been sleeping over the course of the past week. Departure - Departure Time of Disposition: 12:10 Disposition: Home, Self-Care 01 Condition: Good Clinical Impression: Anxiety Prescriptions: LORazepam [Ativan] 0.5 mg PO BID PRN #10 tablet PRN Reason: Anxiety Referrals: Whitney Kerr PA-C [Primary Care Provider] - Forms: ED Department Discharge Additional Instructions: You were seen in the emergency department today with complaints of palpitations and anxiety. Full cardiac work-up was completed which included an EKG, chest x-ray and lab studies. All of these were negative except for your potassium level was a little low. You were given potassium supplementation while in the emergency department. Recommend eating a banana a day or consuming potassium rich foods. The likely source of your palpitations is anxiety and lack of sleep. You were given a medication called Ativan while in the emergency department and this did seem to help. I have electronically sent a prescription for Ativan half milligram tabs to your pharmacy. This can be taken twice daily as needed for anxiety. Again, do not drive after taking this medication as it can cause drowsiness. And I also strongly recommend that you follow-up with your primary care provider and consider going on an antianxiety medication until you can get through this stressful point in your life. Should your condition worsen or change, do not hesitate returning to the emergency department. Sepsis Event Note (ED) - Evaluation Sepsis Screening Result: No Definite Risk - Focused Exam Vital Signs: Vital Signs Temp Pulse Resp BP Pulse Ox 08/22/20 11:14 85 18 137/87 100 08/22/20 10:23 98.9 F 90 18 130/80 99 - My Orders Last 24 Hours: My Active Orders 08/22/20 10:31 EKG Documentation Completion [RC] STAT - Assessment/Plan Last 24 Hours: My Active Orders 08/22/20 10:31 EKG Documentation Completion [RC] STAT
[2020-08-22 11:15] VITALS: PULSE 85
[2020-08-22] MEDS ORDERED: Potassium Chloride 20 MEQ Tab.ER PO ONE (12:02)
[2020-08-22 12:53] VITALS: BP 133/84
== END 2020-08-22 12:40 | disposition home or self-care (01) ==
LOC: JD.ED 09:53
DX: F41.9 Anxiety disorder, unspecified (principal); Z88.8 Allergy status to other drugs, medicaments and biological substances; Z88.6 Allergy status to analgesic agent; E66.9 Obesity, unspecified; Z72.0 Tobacco use
CPT/HCPCS: 36415; 80053; 83735; 84443; 84484; 85025; 93005; 99285; A9270; 93010; 99283

== ENCOUNTER 2022-04-27 00:59 | Emergency (ER) | payer SELFPAY ==
[2022-04-27 01:06] VITALS: BP 163/100; PULSE 96
== END 2022-04-27 01:19 ==
LOC: JD.ED 00:59
DX: S01.81XA Laceration without foreign body of other part of head, initial encounter (principal); F10.129 Alcohol abuse with intoxication, unspecified; E66.9 Obesity, unspecified; Z68.26 Body mass index [BMI] 26.0-26.9, adult; Z91.048 Other nonmedicinal substance allergy status; Z88.8 Allergy status to other drugs, medicaments and biological substances; Y04.0XXA Assault by unarmed brawl or fight, initial encounter
CPT/HCPCS: 99282; 99283